=== PATIENT | female | born 2000 | race Caucasian/White ===

== ENCOUNTER 2022-07-03 17:56 | Outpatient (CLI) | payer BC, MEDICAID, SELFPAY ==
[2022-07-03] VITALS (10 sets, daily range): BP systolic 108–120; BP diastolic 60–78; PULSE 56–86; RESP 16; TEMP 36.2; BMI 25.3
== END 2022-07-03 20:16 | disposition home or self-care (01) ==
LOC: OPOB 18:04 → OBGYN 18:05
PROVIDERS: Visit Provider Family Medicine
DX: Z04.1 Encounter for examination and observation following transport accident (principal)
CPT/HCPCS: 59025; 99211